=== PATIENT | female | born 1995 | race Caucasian/White ===

== ENCOUNTER → 2019-01-28 | Outpatient (CLI) | payer OTHER ==
[~2019-01-28] VITALS: Ht 167.6 cm; Wt 122.9 kg
[~2019-01-28] MED LIST: ALIVE WOMEN'S1 EAC2 PO; AMPHETAMINE SAL20 M1 PO; ARTHRITIS PAIN M3 O1 TOP; COSAMIN ASU CA1 EAC1 PO; DIAZEPAM 5 MG5 M1; EMU OIL TOP; MELOXICAM15 MG PO; MORPHABOND ER15 MG PO; PERCOCET 5-3251 EACH; PROTONIX40 M4 PO; TURMERIC500 M2 PO; ZANAFLEX4 M2 PO
[2019-01-28 14:41] VITALS: BP 121/76
--- NOTE | 2019-01-28 15:19 | NUR ---
Pain Clinic Assessment: 1. History of Osteoarthritis: Left Lower Extremity Right Lower Extremity History of Rheumatoid Arthritis: 2. Height: 5 ft. 6 in. 167.6 cm. Weight: 271.0 lb. oz. 122.925 kg. Patient's BMI: 43.8 3. Vital Signs: BP: 121/76 Pulse: 84 Resp: 16 Temp: 02 Sat: 100 ECG Mon: 4. Pain Intensity: 7 5. Fall Risk: Dizziness: N Needs help standing or walking: N Fallen in the last 3 months: Y Fall risk comments: 6. Patient on Blood Thinner: None 7. History of Hypertension: N 8. Opioid Therapy greater than 6 weeks: Y Opiate Contract Signed: 9. Risk Assessment Tool Provided: Opioid Risk Tool 10. Functional Assessment Tool: 63/70 11. Recreational Drug Use: Never Drug Type: Tobacco Use: Never Smoker Tobacco Type: Amount or Packs/day: How Many Years: Alcohol Use: No Frequency: Quant:
--- NOTE | 2019-02-08 12:21 | HPC ---
[facility] [place] [address] [place] [address] PAIN MANAGEMENT CONSULTATION Name: PAUL CAMPO Room #: REG [facility]..#: [id number] Admission: 01/28/19 Attend Phys: Oscar Eisenberg MD Discharge: Date of : 89 Report #: [id number] THIS REPORT FOR: //name// CC: Aquiles Eisenberg DATE OF SERVICE: 01/28/2019 CHIEF COMPLAINT: Bilateral knee pain and chronic debility. HISTORY OF PRESENT ILLNESS: The patient is here today with her mother. She is a tom 23-year-old who is suffering from chronic pain. She dates back into her cherrie high years when she first began noticing problems with her knees and having some dislocations. Her real pain began about 2015. She had bilateral dislocations of the patella. They have been reduced and she has seen multiple physicians over the course of the last 3 years. She has been told a variety of things the most hurtful and harmful to her recovery from a physician who suggested that she had the knees of a 90-year-old and that she was doom to chronic pain. She has seemed to follow his advice and has become debilitated. She sees Dr. Aquiles Rowe for psychiatric issues, although she denies depression. She is taking amphetamines under his direction. So my assumption is that he has diagnosed her with adult attention deficit disorder. MEDICATIONS: Pantoprazole, tizanidine, meloxicam, diazepam, morphine sulfate 15 [address] provided by Dr. Leyva, oxycodone 5/325 one tablet allowed a day for breakthrough pain, glucosamine chondroitin, acetaminophen b.i.d., turmeric, pain cream, essential oils, arthritis cream, Emu oil and Alive women's vitamin. ALLERGIES: SULFA, HYDROCODONE makes her dizzy. PAST MEDICAL HISTORY: Bilateral arthroscopic surgery on her knees in 2015. Eagle teeth removal in 2008, tonsillectomy, adenoidectomy in 2003. The patient has a history of gastritis. SOCIAL HISTORY: She is living with her parents and has not been working for about 1-1/2 years. 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 She is not receiving workmen's compensation disability income, but is currently in the process of trying to obtain it. She is also seeking Medicaid help since she will age out of her parents' insurance shortly. REVIEW OF SYSTEMS: Positive for weight gain, fatigue, weakness, headaches, chronic sinusitis, history of PSVT and chest pain. She has dyspnea on exertion, [address] [address] PAIN MANAGEMENT CONSULTATION Name: PAUL CAMPO Room #: REG [facility].#: [id number] Admission: 01/28/19 Attend Phys: Oscar Eisenberg MD Discharge: Date of : [birth year] Report #: [id number] complains of loss of appetite, change in bowel movements and constipation, irregular periods for which she takes ibuprofen and discontinued his meloxicam. Dizzy spells and insomnia. She often does and go to bed until 3 in the morning. She denies nervousness or depression or memory loss or confusion. Opioid risk score is 3 for attention deficit disorder and age under 45, but she denies family history or personal history of substance abuse. She denies any other psychological disease other than the ADHD. Impact pain score is 62 suggesting impact of pain in all aspects of her life including social activities, sleep, and most importantly enjoyment of life 10/10. She denies any social activities or social contacts. She seems very isolated, but is fortunate and grateful to have a very supportive mother at home, who is clearly concerned about her daughter today in our visit. PHYSICAL EXAMINATION: GENERAL: She is pleasant, cried once during her visit. She seems pessimistic in her outlook, but I would agree she does not appear necessarily depressed, but sad. HEENT: Reveals piercings in her cheek on the left. Pupils are equal, round, react to light. EOMs are intact. Mucous membranes were moist. NECK: Supple. CHEST: Clear. CARDIAC: Rhythm regular. ABDOMEN: Obese. MUSCULOSKELETAL: Examination of the lower extremities reveals varus deformity of the knees bilaterally. There is negative drawer test. She has minimal tenderness. The patella was not particularly mobile under my exam. Minimal tenderness along the medial and lateral aspect of the knee. I could not palpate a cyst. Good range of motion in flexion and extension. The rest of the lower extremity is normal. She has not shaved her legs as most women do. IMPRESSION: 1. 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 2. Chronic pain syndrome with significant biopsychosocial overlay. She is socially isolated and withdrawn. She does not have goals or directions. This is important for her recovery at the age of 23. 3. Polypharmacy. She is on tizanidine, diazepam, amphetamine, morphine and oxycodone, 5 centrally acting drugs. We discussed the opioid crisis in [place] concerns about long-term use of opioids in the younger patient. I have provided her with my opinions regarding both opioids and the treatment of chronic pain as well as the difference between long-acting and short-acting medications. There are some controversies about the best use of the multiple opioid medications we have available. It is my personal belief that if we are using opioids, we should use short acting opioids [facility] [address] [place] [address] PAIN MANAGEMENT CONSULTATION Name: PAUL CAMPO [facility]#: [id number] Admission: 01/28/19 Attend Phys: Oscar Eisenberg MD Discharge: Date of : 89 Report #: [id number] targeted towards improving a functional activity. This can be taken in advance of physical therapy, a daily walk, a social activity, but something that would be integrated and used in conjunction with a positive therapeutic activity. I would not support or agree with the use of long acting opioids around the clock. I discussed this on the phone after her visit with Dr. Leyva who is her current prescriber and he agrees. He will discuss with them at their upcoming visit a transition to perhaps 3 short acting oxycodone 5/325 to be used each day. If he does that, her MME would drop from 52-22, a more gentle drop might be by using oxycodone 7.5/325 three times a day for an MME of roughly 35. She should not experience withdrawal. She could use the medications more thoughtfully again towards functional goals. They have an upcoming visit planned to the [facility]. I reminded them that the [facility] will likely not provide a cure for her underlying patellar issues at the first visit, but they may have some excellent therapeutic suggestions to allow for correction of her knee issues, so that she can move forward. I would like to see her back in a month. The main focus of my discussion today was optimism. I wonder to feel that she can get better and that despite the fact that she has some changes in her knees that she is able to participate in a program of Wellness and rehabilitation that might allow her to move forward with an independent life outside of her parents' home. Total time spent was 45 minutes to an hour. Questions were answered. No other therapies were initiated today. <ELECTRONICALLY SIGNED> By: Oscar Eisenberg MD 02/08/19 1221 [id number] Oscar Eisenberg MD /nt
== END ==
LOC: PAIN 08:21
DX: M25.562 Pain in left knee (principal); M25.561 Pain in right knee; G89.4 Chronic pain syndrome

== ENCOUNTER 2019-03-03 11:00 | Inpatient (IN) | payer OTHER ==
[~2019-03-03] VITALS: Ht 165.1 cm; Wt 123.4 kg
[2019-03-03 11:04] VITALS: BP 149/84
[2019-03-03 11:34] LABS: ABSOLUTE NEUTROPHILS 14.7 thou/uL (1.4-8.2); BASOPHILS 0.3 % (0.0-2.0); HEMATOCRIT 40.7 % (37.0-47.0); HEMOGLOBIN 13.3 gm/dL (12.0-15.0); LYMPHOCYTES 3.4 % (24.0-44.0); MCH 28.5 pg (26.0-34.0); MCHC 32.8 g/dL (28.0-37.0); MCV 86.8 fL (80.0-100.0); MONOCYTES 6.8 % (1.0-8.0); PLATELET COUNT 332 thou/uL (150-400); POLYS 89.5 % (36.0-66.0); RBC 4.69 mil/uL (4.20-5.00); RDW 13.2 % (10.5-14.5); WBC 16.5 thou/uL (4.0-11.0)
[2019-03-03 11:41] LABS: CREATININE 1.2 mg/dL (0.6-1.0); POTASSIUM 4.3 mmol/L (3.5-5.1)
[2019-03-03 11:48] LABS: ALBUMIN 3.6 g/dL (3.4-5.0); TOTAL BILIRUBIN 0.6 mg/dL (<0.1-1.0)
[2019-03-03 13:08] LABS: URINE BILIRUBIN NEGATIVE (Negative); URINE BLOOD 1+ (Negative); URINE CLARITY CLEAR; URINE COLOR YELLOW; URINE GLUCOSE-RANDOM* NEGATIVE (Negative); URINE KETONES NEGATIVE (Negative); URINE LEUKOCYTES-REFLEX 1+ (Negative); URINE NITRITE-REFLEX NEGATIVE (Negative); URINE PROTEIN (DIPSTICK) NEGATIVE (Negative); URINE SPECIFIC GRAVITY <= 1.005 (1.005-1.035); URINE UROBILINOGEN 0.2 E.U./dl (0.2-1.0)
[2019-03-03 13:15] LABS: CASTS None Seen /LPF (None Seen); CRYSTALS None Seen /LPF (None Seen); SQUAMOUS 0-3 Few /LPF (0-3); URINE RBC 3-10 Few /HPF (0-2); URINE WBC-REFLEX 6-15 Few /HPF (0-5)
[2019-03-03] MEDS ORDERED: PROAIR HFA8.5 GM INH (13:30)
[2019-03-03] MEDS ORDERED: VITAMIN D2400 UNIT PO (13:31)
[2019-03-03] MEDS ORDERED: METFORMIN HCL500 M3 PO (13:31)
[2019-03-03 15:12] VITALS: BP 118/59
[2019-03-03 16:43] VITALS: BP 124/61
[2019-03-03 18:19] VITALS: BP 120/40
[2019-03-03 19:05] VITALS: BP 129/59
--- NOTE | 2019-03-03 19:41 | NUR ---
ASSUMED CARE OF PATIENT APPROX 1700. PATIENT IN PAIN AND HAS FEVER, MEDICATION GIVEN, DOCTOR, AWARE. NO SIGNS OF DISTRESS. PATIENT RESTING IN BED WITH MOTHER AT BEDSIDE. PATIENT ON REG DIET AND TOLERATING. WILL CONTINUE TO MONITOR.
[2019-03-03 23:47] VITALS: BP 90/56
--- NOTE | 2019-03-04 01:46 | NUR ---
ASSUMED CARE OF PT AT 1900HRS. PT IS AOX4 AND AND LETS NEEDS BE KNOWN. PT IS UP AD BOOM. PT REPORTED PAIN AND PRN MEDS WERE PROVIDED. PT HAD A FEVER AT THE BEGINNING OF THE SHIFT BUT THAT HAS RESOLVED. FAMILY IS AT BEDSIDE. PT WAS ABLE TO GET COMFORTABLE AND SLEEP PART OF THE SHIFT. NO S/S OF ACUTE DISTRESS. WILL CONTINUE TO MONITOR.
[2019-03-04 04:21] VITALS: BP 116/59
[2019-03-04 07:55] VITALS: BP 130/86
[2019-03-04 09:21] LABS: HEMATOCRIT 36.4 % (37.0-47.0); HEMOGLOBIN 11.7 gm/dL (12.0-15.0); MCH 28.1 pg (26.0-34.0); MCHC 32.2 g/dL (28.0-37.0); MCV 87.1 fL (80.0-100.0); RBC 4.18 mil/uL (4.20-5.00); RDW 13.3 % (10.5-14.5); WBC 10.9 thou/uL (4.0-11.0)
[2019-03-04 09:46] LABS: CALCIUM 8.7 mg/dL (8.5-10.1); CREATININE 0.8 mg/dL (0.6-1.0); POTASSIUM 3.8 mmol/L (3.5-5.1)
--- NOTE | 2019-03-04 09:51 | NUR ---
Nutrition: pt admitted with pyelonephritis, RUQ pain. Consult received no reason given. Pt with nausea, difficulty eating x 3 days. On regular diet, observed breakfast. Pt consumed nearly 100%. Reports no nausea at present. Does report weight gain over the years due to chronic knee issues and is pretty sedentary. BMI 45, extreme class 3 obesity. Feels she eats fairly healthy. Agreed for RD to provide her with additional literature and guidance for weight loss. Low nutrition risk.
--- NOTE | 2019-03-04 18:02 | NUR ---
Assumed patient care at 0715. Vital signs have been stable. IV in left AC is patent with NS at 100mLs per hour. Patient is alert and oriented x's 4. She has requested and received Oxycodone po three times during this shift. Medications have been effective in decreasing her pain. Patient is pleasant and cooperative. Family has been at bedside. Will continue to monitor.
[2019-03-04 18:56] VITALS: BP 130/79
--- NOTE | 2019-03-05 04:27 | NUR ---
PT AOX4. PT REPORTS 6/10 PAIN IN BACK. PT RECEIEVING PRN PO APAP Q4HR, PRN PO OXYCODONE Q4HR, AND PRN IV MORPHINE Q2HR. PT REPORTS APAP AND OXYCODONE MOST EFFECTIVE. PT PERFORMS ADLS AND AMBULATES INDEPENDENTLY. PT CONTINUES TO TOLERATE PO INTAKE WITHOUT ISSUE. ENCOURAGED PT TO NOTIFY STAFF FOR ALL NEEDS. CALL LIGHT WITHIN REACH, BED ALARM ON, BED IN LOWEST POSITION. WILL CONTINUE TO MONITOR.
[2019-03-05 09:59] VITALS: BP 120/69
[2019-03-05 12:15] VITALS: BP 110/51
[2019-03-05] MEDS ORDERED: CEFDINIR300 MG PO (12:27)
[2019-03-05 15:57] VITALS: BP 120/69
--- NOTE | 2019-03-05 17:10 | NUR ---
Assumed patient care at 0715. Vital signs have been stable. Pain is better controlled. Patient discharged at 1625 with her Father, after she verbalized an understanding of all Discharge Instructions.
== END 2019-03-05 16:28 | disposition home or self-care (01) | DRG 871 ==
LOC: ER 11:00 → 4W 15:15 → EROBS 15:15 → 4W 16:48 → ENTRNSPT 03-05 16:23 → 4W 03-05 16:28
PROVIDERS: Emergency Medicine; ADMIT Family Medicine
DX: A41.9 Sepsis, unspecified organism (principal); N17.0 Acute kidney failure with tubular necrosis; N12 Tubulo-interstitial nephritis, not specified as acute or chronic; Z98.818 Other dental procedure status; Z79.84 Long term (current) use of oral hypoglycemic drugs; Z79.891 Long term (current) use of opiate analgesic; Z79.899 Other long term (current) drug therapy; Z88.5 Allergy status to narcotic agent; Z88.2 Allergy status to sulfonamides; Z88.8 Allergy status to other drugs, medicaments and biological substances
CPT/HCPCS: 10040

== ENCOUNTER → 2019-04-05 | Outpatient (CLI) | payer OTHER ==
[~2019-04-05] VITALS: Ht 167.6 cm; Wt 123.2 kg
[~2019-04-05] MED LIST changes: +CEFDINIR300 MG PO; +COSAMIN DS TAB1 EACH PO; +METFORMIN HCL500 M3 PO; +PROAIR HFA8.5 GM INH; +VITAMIN D22000 UNIT PO; +VITAMIN D2400 UNIT PO
[2019-04-05 14:41] VITALS: BP 122/76
--- NOTE | 2019-04-05 15:02 | NUR ---
Pain Clinic Assessment: 1. History of Osteoarthritis: Left Lower Extremity Right Lower Extremity History of Rheumatoid Arthritis: Not Applicable 2. Height: 5 ft. 6 in. 167.6 cm. Weight: 271.6 lb. oz. 123.197 kg. Patient's BMI: 43.9 3. Vital Signs: BP: 122/76 Pulse: 101 Resp: 14 Temp: 02 Sat: 100 ECG Mon: 4. Pain Intensity: 9 5. Fall Risk: Dizziness: N Needs help standing or walking: N Fallen in the last 3 months: N Fall risk comments: 6. Patient on Blood Thinner: None 7. History of Hypertension: N 8. Opioid Therapy greater than 6 weeks: Y Opiate Contract Signed: 9. Risk Assessment Tool Provided: low-0 10. Functional Assessment Tool: 63/70 11. Recreational Drug Use: Never Drug Type: Tobacco Use: Never Smoker Tobacco Type: Amount or Packs/day: How Many Years: Alcohol Use: No Frequency: Quant:
--- NOTE | 2019-04-08 14:31 | HPC ---
[facility] [place] [address] PAIN MANAGEMENT CONSULTATION Name: PAUL CAMPO Room #: REG [facility] M..#: [id number] Admission: 04/05/19 Attend Phys: Oscar Eisenberg MD Discharge: Date of : 89 Report #: [id number] THIS REPORT FOR: cc: Jagdish Leyva MD, Neal A. MD Morgan,Oscar Hernandez MD ~ THIS REPORT FOR: //name// CC: Jagdish Eisenberg Followup visit for chronic pain. The patient has returned from the [facility]. She was seen by several groups there and her MRIs were reviewed. She spent a long time with a surgeon whose name was not on the report. We talked about a variety of different surgical options from stop gap to bilateral knee replacements, not really recommending either due to her young age. She continues to feel a bit lost and I can understand why. She has a painful condition that does not have an immediate care and will need to be managed chronically. My report and dictation from 01/28/2019 really lays out fairly clearly the important psychosocial components to her underlying condition and challenges. She is living with parents without gainful employment. She is about to go off of their insurance. At the age of 23, her mother says that they are pursuing social security disability because she just cannot really get all in life on her own. She remains somewhat pessimistic and direction less. CURRENT MEDICINES: From the prescription drug monitoring program include oxycodone 5/325, dextroamphetamine and amphetamine 20 mg tablet, diazepam 5 mg, morphine sulfate 15 mg b.i.d., glucosamine chondroitin, vitamin D2, metformin, Alive women's gummy vitamin, meloxicam 15 mg, tizanidine 4 mg p.r.n. and Protonix. PHYSICAL EXAMINATION: GENERAL: She is 5 feet 6 inches, BMI is 43.9. She is pleasant, but depressed and direction less. She has a piercing in her left lip. HEENT: Pupils are equal, round, reactive to light. EOMs intact. NECK: Supple. MUSCULOSKELETAL: Reveals varus deformity of the knees. She has bilateral tenderness. She has some hyperextension with audible crepitus that she demonstrated for me as she walked in today. Strength is adequate. IMPRESSION: [facility] [address] [facility] [place] [address] PAIN MANAGEMENT CONSULTATION Name: PAUL CAMPO Room #: REG [facility].#: [id number] Admission: 04/05/19 Attend Phys: Oscar Eisenberg MD Discharge: Date of : 89 Report #: [id number] 1. Chronic bilateral knee pain with patellar instability. This may not have a surgical treatment. Physical therapy and exercises may provide strengthening around the knee and be a benefit for her. 2. Obesity with a body mass index of 43. Exercise will not be particularly easier. Weight loss is important to help with the pain in her knees. Easily discussed very challenging to accomplish. 3. Polypharmacy and use of opioids and benzodiazepines and stimulants. This is a problem and a challenge. She does get some relief from her pain medications and Dr. Leyva has discussed tapering him off. She has come down quite a ways. I spent time with her again today discussing the opioid crisis and the issues that occurred when we took younger patients and used higher dose opioids. I agree with efforts to try and taper to the lowest effective dose. Although I fear that given her chronic use of opioids now over 1 year, then getting her off completely will be a challenge unless we can find some other way of managing her pain. I gave her some guidelines of my consultation from 01/28/2019 with echo dose. I did offer her information about [facility], which provides programs for hope and independence. Those can be attended often times without cost. We discussed wellness behaviors which is so important. No medications were ordered. I did have her complete an opioid risk tool today and her score was 0 suggesting that she is at low risk for addiction. I would say, however, that lifelong dependence on opioids often occurs in such settings and regardless of whether or not she takes them in a manner that consistent with addiction. The dependency makes it extremely difficult to come off of medications the longer she remains on them. <ELECTRONICALLY SIGNED> By: Oscar Eisenberg MD 04/08/19 1431 1708 1300 Oscar Eisenberg MD /nt
== END ==
LOC: PAIN 06:45
DX: M25.561 Pain in right knee (principal); M25.562 Pain in left knee; G89.29 Other chronic pain; F11.90 Opioid use, unspecified, uncomplicated; F15.90 Other stimulant use, unspecified, uncomplicated; F13.90 Sedative, hypnotic, or anxiolytic use, unspecified, uncomplicated; E66.9 Obesity, unspecified; Z68.41 Body mass index [BMI] 40.0-44.9, adult; Z79.899 Other long term (current) drug therapy